=== PATIENT | male | born 1930 | race Caucasian/White ===

== ENCOUNTER 2016-11-12 14:49 | Emergency (ER) | payer MEDICARE ==
--- NOTE | 2016-11-12 16:21 | CT ---
HEAD W/O CON COMPARISON: None HISTORY: Ground-level fall, striking head, with loss of consciousness. TECHNIQUE: Using a [employer] [address] scanner, images were obtained through the head. An automated dose reduction technique was used to minimize patient radiation dose. DOSE INFORMATION: CTDIvol (mGy): 51.70 DLP(mGycm): 938.90 FINDINGS: Mass: None Intracranial Hemorrhage: None Acute Infarction: None Cerebral hemispheres: Marked atrophy. Basal ganglia: Normal Thalami: Normal Brainstem: Normal Cerebellum: Normal Ventricles: Ex vacuo enlargement. Basilar cisterns: Ex vacuo enlargement. Corpus callosum: Normal Pituitary fossa: Normal Middle ears and mastoid air cells: Normal Orbits and sinuses: No acute finding. Bilateral aphakia. Skull and scalp: No depressed skull fracture. There is some air in the subcutaneous tissues in both temporal regions and superior to the right orbit. Dural sinuses and vessels: Atherosclerosis of the internal carotid arteries. IMPRESSION: 1. No intracranial hemorrhage. 2. No depressed skull fracture. There is some air in the subcutaneous tissues in both temporal regions and the superior right orbit. 3. Marked cerebral atrophy. The report was sent to the emergency department electronic medical record system 11/12/2016 at 16:23
[2016-11-12 16:25] LABS: ABSOLUTE NEUTROPHIL COUNT 3.9 K/mm3 (1.8-7.7); BASO # 0.1 K/mm3 (0.0-0.2); BASO % 0.8 % (0.2-1.0); EOS # 0.3 (0.0-0.5); EOS % 4.7 % (0.9-2.9); HEMOGLOBIN 13.3 gm/l (14.0-18.0); IMM NEUT% 0.5 % (0-1); LYMPH # 1.5 (1.0-4.8); LYMPH % 23.9 % (15-45); MEAN CELL VOLUME 100.7 fl (80.0-94.0); MEAN CORPUSCULAR HEMOGLOBIN 32.7 pg (27.0-31.0); MEAN CORPUSCULAR HGB CONC 32.4 g/dl (33.0-37.0); MEAN PLATELET VOLUME 13.4 fl (7.4-10.4); MONO # 0.6 (0.0-0.8); MONO % 9.6 % (4-12); NEUT % 60.5 % (43-75); PLATELET COUNT 126 K/mm3 (130-400); RED CELL DISTRIBUTION WIDTH 13.6 % (11.5-14.5)
--- NOTE | 2016-11-12 16:30 | CT ---
C-SPINE W/O CON History: Ground-level fall. Procedure: 1 mm axial images were obtained through the cervical spine from the base of the skull to T1 with stacked reconstructed 2 mm images photographed in the axial, coronal and sagittal planes. Comparison: None. Findings: There is evidence of reversal of the normal cervical lordosis with prominent multilevel cervical spondylosis changes, particularly at C5-6. Slight anterolisthesis of C4 on C5 is present likely due to posterior uncinate process hypertrophy. No definitive fracture is visualized. The facets align appropriately with no jumped or perched facet seen. The spinous processes are intact. No prevertebral soft tissue swelling is suggested. The predens space is not widened. The odontoid process is intact. There is atherosclerotic calcification of the carotid bulbs, right greater than left. The thyroid gland and lung apices appear to be appropriate. There is evidence of ossification of the posterior annular margin is at C2-3, C3-4 and C5-6. Impression: 1. Prominent cervical spondylosis changes and uncinate process hypertrophy with slight anterolisthesis of C4 on C5 and reversal of the normal cervical lordosis. 2. No definitive fracture visualized. 3. Atherosclerotic calcification of both carotid bulbs, right greater than left. 4. 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
== END 2016-11-12 17:08 | disposition home or self-care (01) ==
LOC: ED 14:49
DX: R55 Syncope and collapse (principal); M47.812 Spondylosis without myelopathy or radiculopathy, cervical region; J44.9 Chronic obstructive pulmonary disease, unspecified; I50.9 Heart failure, unspecified; E11.9 Type 2 diabetes mellitus without complications; Z87.891 Personal history of nicotine dependence; Z79.4 Long term (current) use of insulin; Z79.84 Long term (current) use of oral hypoglycemic drugs; W18.30XA Fall on same level, unspecified, initial encounter; Y93.89 Activity, other specified; Y92.009 Unspecified place in unspecified non-institutional (private) residence as the place of occurrence of the external cause